=== PATIENT | female | born 1990 | race Caucasian/White ===

== ENCOUNTER 2020-03-19 16:23 | Outpatient (REF) | payer SELFPAY | END 2020-03-19 16:43 | LOC: LBN 16:23 | PROVIDERS: PCP Internal Medicine; Visit Provider Family Medicine | DX: R30.0 Dysuria (principal); R31.29 Other microscopic hematuria | CPT/HCPCS: 87077; 87086; 87186 ==

== ENCOUNTER 2020-03-21 09:51 | Emergency (ER) | payer SELFPAY ==
[2020-03-21] VITALS (9 sets, daily range): BP systolic 93–126; BP diastolic 52–64; PULSE 61–92; RESP 16–18; TEMP 37.1; O2SAT 94–100
--- NOTE | 2020-03-21 09:53 | ED.GENADUL_ITS ---
Discharge Plan Disposition Patient Disposition: HOME Condition: Improving Discharge Details Clinical Impression: Pyelonephritis Primary Care Provider: Rachel Juarez ED Provider: Lucy Medel Home Meds and New Rx's Prescriptions: Continued ciprofloxacin HCl 500 mg tablet 500 mg PO BID 7 Days Qty: 14 RF: 0 promethazine 25 mg tablet 25 mg PO TID PRN (Reason: nausea and vomiting) Qty: 20 RF: 0 acetaminophen [Tylenol] 325 MG tablet 650 mg PO Q4H PRN Qty: 30 RF: 3 Discharge Instructions Instructions: Urinary Tract Infection in Women (ED), Kidney Infection (ED) Additional Instructions: Drink plenty of fluids and get plenty of rest. Alternate tylenol and motrin as needed and directed for pain. Take your antibiotics until finished. Continue to take your promethazine as needed directed for nausea and vomiting. Follow-up with your primary care doctor in 1 week. Return to the emergency department with any worsening or new concerning symptoms. Discharge Data Discharge Physician: Lucy Medel Medical Decision Making 29-year-old female presents with urinary frequency, flank pain for 6 days and vomited 3 times this morning. She is currently on ciprofloxacin for a suspected diagnosis of pyelonephritis. Vitals within normal limits. She appears nontoxic. She has right CVA tenderness. Abdomen soft and nontender. Urinalysis obtained on arrival and consistent with bladder infection. Will refer for labs and imaging as her symptoms are not improving on 1 and half days of antibiotics. Suspect she may need just additional antibiotic medication before her symptoms improve. We will also place an IV and fluids, IV Tylenol, Toradol and CT abdomen and pelvis and reassess. Urine test negative. Labs reviewed and note a normal white blood cell count. Normal renal function. CT abdomen and pelvis no evidence of stone, hydronephrosis or obvious signs of pyelonephritis. Suspect no obvious signs of pyelonephritis may be due to 2 days of oral antibiotics as clinically she appears consistent has pyelonephritis. Patient reassessed and she feels much better and she feels good to go home. Advised to finish her antibiotics as recent urine culture sensitive to ciprofloxacin. Advised to take her Phenergan as needed. Advised to follow up with the primary care doctor for re-evaluation. Usual and customary return precautions given prior to discharge. Medical Records Medical records reviewed: Yes I reviewed the patient's medical records. Imaging Data Radiologic Study: Radiologist's impression: CT ABDOMEN PELVIS W CLINICAL HISTORY: b/l flank pain, worse on R, r/o kidney stone. TECHNIQUE: Imaging Protocol: Axial computed tomography images with coronal and sagittal reformatted images were created and reviewed CONTRAST MATERIAL: Intravenous: Omnipaque 350 100cc Oral: None COMPARISON: No exams were available for comparison FINDINGS: VISUALIZED LUNG BASES: No nodules nor pleural effusions evident. ABDOMEN: There is no ascites. LIVER: There is a solitary focal finding in the liver in the anterior aspect of the right lobe which measures 9 x 9 millimeters. Appearing slightly dense to be a simple cyst. Possibly hemangioma; less likely to be more ominous pathology in this age group. No other focal hepatic lesions evident. GALLBLADDER/BILIARY: No obvious gallbladder pathology. CBD is not dilated. PANCREAS: No evidence of pancreatic mass nor dilatation of the pancreatic duct. SPLEEN: Spleen is not enlarged. No obvious intrasplenic lesions. Splenic and portal veins are patent. ADRENALS: There are no significant adrenal masses. KIDNEYS: Both kidneys exhibit normal size. . No cyst or mass is evident. Both kidneys enhance uniformly. No evidence of renal carbuncle, given the history here. No perinephric stranding. No calculi seen in the kidneys. Both upper ureters are slightly prominent in size. Both ureters are normal size below the iliac vessels. No calculi nor other findings in the urinary bladder. No diverticuli in the urinary bladder. ABDOMINAL AORTA: Abdominal aorta is not enlarged and there is no [id number]-gdob-wegbfg adenopathy. ABDOMINAL WALL/GI: No evidence of significant anterior abdominal wall hernia. No bowel obstruction. PELVIS: GI: No evidence of appendicitis.No evidence of sigmoid diverticulitis. LYMPH NODES: There is no intrapelvic nor inguinal adenopathy. REPRODUCTIVE: Uterus is retroverted. There are cysts in both ovaries noted. Largest of these on the left size and measures 1.7 x 1.5 centimetres, most probably follicular. There no extraovarian adnexal masses. No free fluid in the pelvis. URINARY BLADDER: No calculi nor obvious masses evident OSSEOUS: No significant osseous lesions. IMPRESSION: 1. No calculi no other focal findings in the kidneys. No hydronephrosis. Both ureters are slightly prominent in size but do not exhibit radiopaque calculi therein. There also no calculi in the urinary bladder. 2. Kidneys enhance normally and uniformly with no asymmetric enhancement which is sometimes seen in pyelonephritis. Also no evidence of renal carbuncle. 3. Follicular cysts in the ovaries. 4. Incidentally noted is a solitary round 9 x 9 millimeter lesion in the liver which appears slightly too dense to be a simple cyst. Statistically this is probably a hemangioma in this age group. Recommend follow-up ultrasound. Lab Data Lab results reviewed: Yes I reviewed the patient's lab results. Labs: Laboratory Tests Range/Units 03/21/20 03/21/20 03/21/20 09:57 10:04 10:04 WBC (4.4-10.8) 10^3/uL 5.57 RBC (3.93-5.22) 10^6/uL 4.14 Hgb (11.2-15.7) g/dL 12.0 Hct (36.0-46.0) % 37.5 MCV (80-95) fL 90.6 MCH (27.0-33.0) pg 29.0 MCHC (32.0-36.0) % 32.0 RDW (11.7-14.6) % 11.9 Plt Count (130-400) 10^3/uL 219 MPV (8.0-11.0) fL 11.2 H Immature Gran % 0.2 Neutrophils % 66.3 Lymphocytes % 26.6 Monocytes % 5.4 Eosinophils % 1.1 Basophils % 0.4 Nucleated RBC % % 0 Absolute Neutrophils (1.2-6.7) 10^3/uL 3.70 Absolute Lymphocytes (1.2-3.4) 10^3/uL 1.48 Absolute Monocytes (0.1-0.8) 10^3/uL 0.30 Absolute Eosinophils (0.0-0.7) 10^3/uL 0.06 Absolute Basophils (0.0-0.2) 10^3/uL 0.02 Sodium (136-145) mmol/L 137 Potassium (3.5-5.1) mmol/L 3.7 Chloride (98-107) mmol/L 102 Carbon Dioxide (21.0-32.0) mmol/L 28.4 Anion Gap (3-11) mmol/L 6.6 BUN (7-18) mg/dL 12 Creatinine (0.55-1.02) mg/dL 0.90 Estimated GFR/1.73 m2 (mL/min/1.73m2) >= 60.00 Glucose (74-106) mg/dL 82 Calcium (8.5-10.1) mg/dL 8.9 Total Bilirubin (0.2-1.0) mg/dL 0.8 AST (15-37) U/L 13 L ALT (14-59) U/L 15 Alkaline Phosphatase (46-116) U/L 40 L Total Protein (6.4-8.2) g/dL 8.2 Albumin (3.4-5.0) g/dL 4.1 Lipase (73-393) U/L 50 Urine Color (Yellow) Yellow Urine Clarity (Clear) Clear Urine pH (5-8) 7.0 Ur Specific [place] (1.005-1.025) 1.025 Urine Protein (Negative) mg/dL Negative Urine Ketones (Negative) mg/dL Negative Urine Blood (Negative) Trace-intact H Urine Nitrite (Negative) Negative Urine Bilirubin (Negative) Negative Urine Urobilinogen (Up TO 0.2) EU/dL 0.2 Ur Leukocyte Esterase (Negative) Trace H Urine RBC (0-2) HPF 10-20 H Urine WBC (0-5) HPF >50 H Ur Epithelial Cells (Negative) HPF Moderate Urine Crystals (Negative) HPF Negative Urine Bacteria (Negative) HPF Moderate Urine Casts (Negative) LPF Negative Urine Mucus (Negative) Negative Urine Other (Negative) Few transitional Ur Culture Indicated? No/sq. contamination Urine Glucose (Negative) mg/dL Negative HPI General Mode of arrival: ambulatory . Date/Time Provider Initiated Documentation: 03/21/20 09:53 . Limitations to Documentation: no limitations . Information obtained by: patient . HPI Narrative: Patient is a 29-year-old female who presents to the ED with urinary frequency, bilateral flank pain, worse on the right side for the past 6 days and nausea and vomiting today. Patient states that her symptoms for started with urinary frequency and flank pain. She saw her primary care doctor 2 days ago and was diagnosed with likely pyelonephritis and started on ciprofloxacin and given an antiemetic. She states she took her Cipro medication this morning and immediately vomited it up. She states she was advised to come to the ER for further evaluation if unable to keep her medication down her symptoms are worsening. She admits to a temperature of 100.5 two days ago. Related Data Home Medications Medication Instructions Recorded Confirmed acetaminophen [Tylenol] 650 mg PO Q4H PRN #30 tab-cap 11/11/16 03/21/20 ciprofloxacin HCl 500 mg tablet 500 mg PO BID 7 Days #14 tab 03/19/20 03/21/20 promethazine 25 mg tablet 25 mg PO TID PRN #20 tab 03/19/20 03/21/20 Previous Rx's Medication Instructions Recorded ciprofloxacin HCl 500 mg tablet 500 mg PO BID 7 Days #14 tab 03/19/20 promethazine 25 mg tablet 25 mg PO TID PRN #20 tab 03/19/20 Allergies Allergy/AdvReac Type Severity Reaction Status Date / Time codeine AdvReac Intermediate mood Verified 03/21/20 10:00 changes/vomiting as an infant Review of Systems All systems reviewed & are unremarkable except as noted in HPI and below Constitutional Constitutional: Reports as per HPI, Denies chills and Denies fever(s) Eyes Eyes: Denies blurry vision ENT Ears, Nose, Mouth, and Throat: Denies dizziness, Denies sore throat and Denies throat swelling Cardiovascular Cardiovascular: Denies chest pain and Denies dyspnea Respiratory Respiratory: Denies cough and Denies dyspnea Gastrointestinal Gastrointestinal: Denies abdominal pain, Denies diarrhea and Denies vomiting Genitourinary Genitourinary: Denies hematuria, Denies dysuria, Reports flank pain, Reports urinary hesitancy and Reports other (urinary frequency) Musculoskeletal Musculoskeletal: Denies back pain and Denies numbness Integumentary/Breasts Skin/Breast: Denies lesions and Denies rash Neurologic Neurologic: Denies dizziness, Denies localized weakness and Denies numbness Allergic/Immunologic Allergic/Immunologic: Denies throat swelling [facility] Medical History (Updated 03/21/20 @ 12:47 by Lucy Medel DO) BV (bacterial vaginosis) History of ETOH abuse Low back pain H/o disc herniations Urinary tract infection Surgical History wisdom teeth extraction Family History (Updated 09/28/13 @ 15:13 by Angelique Laughlin) Other Diabetes Hyperlipidemia Osteoporosis Social History Smoking/Tobacco Use Status: Never Smoking risk assessment performed?: Yes Alcohol Intake: never Drug use: Never Do you feel safe at home: Yes Do you feel safe in your relationship?: Yes Exam Const General: cooperative, healthy appearing and no acute distress [facility] Head: normal to inspection Face and sinus: normal facial exam Eyes General: appearance normal, both eyes and all related structures EOM: EOM intact bilaterally Neck Neck: normal visual inspection and No submandibular swelling Lymphatic: no lymphadenopathy noted Chest Chest: normal inspection of the chest and no tenderness Resp Effort & Inspection: normal respiratory effort and able to speak in complete sentences Auscultation: clear to auscultation bilaterally Cardio Rate: regular rate Rhythm: regular rhythm GI Inspection: normal to inspection Palpation: soft, not firm, not rigid and nontender Auscultation: normal bowel sounds Back/Spine/Pelvis Back: CVA tenderness (R side) Thoracic/Lumbar Spine: thoracic and lumbar spine normal to inspection Pelvis: no pain with anterior-posterior compression Skin General skin exam: no rashes or lesions noted Neuro General: patient alert, patient awake and patient oriented x3 Cognition: normal cognition Speech: speech normal Motor: muscle tone normal throughout Sensory Exam: no sensory deficits noted Extrem General: normal to inspection, full ROM, capillary refill normal, no calf tenderness bilaterally and no edema Psych Appearance: grossly normal Mental Status: mental status grossly normal Speech and Movement: speech and movement normal Affect: normal affect
[2020-03-21 10:03] LABS: Bilirubin Negative (Negative); Blood Trace-intact (Negative); Clarity Clear (Clear); Glucose Negative (Negative); Ketones Negative (Negative); Leukocyte Esterase Trace (Negative); Nitrite Negative (Negative); Specific Gravity 1.025 (1.005-1.025); Urobilinogen 0.2 EU/dL (Up TO 0.2)
[2020-03-21 10:15] LABS: Bacteria Moderate HPF (Negative); Casts Negative LPF (Negative); Crystals Negative HPF (Negative); Epithelial Cells Moderate HPF (Negative); Mucus Negative (Negative); Other Cells Few Transitional (Negative); WBC >50 HPF (0-5)
[2020-03-21 10:26] LABS: C & S Indicated? No/Sq. Contamination
--- NOTE | 2020-03-21 10:30 | DI.CT_ITS ---
EXAM: CT ABDOMEN PELVIS W CLINICAL HISTORY: b/l flank pain, worse on R, r/o kidney stone. TECHNIQUE: Imaging Protocol: Axial computed tomography images with coronal and sagittal reformatted images were created and reviewed CONTRAST MATERIAL: Intravenous: Omnipaque 350 100cc Oral: None COMPARISON: No exams were available for comparison FINDINGS: VISUALIZED LUNG BASES: No nodules nor pleural effusions evident. ABDOMEN: There is no ascites. LIVER: There is a solitary focal finding in the liver in the anterior aspect of the right lobe which measures 9 x 9 millimeters. Appearing slightly dense to be a simple cyst. Possibly hemangioma; less likely to be more ominous pathology in this age group. No other focal hepatic lesions evident. GALLBLADDER/BILIARY: No obvious gallbladder pathology. CBD is not dilated. PANCREAS: No evidence of pancreatic mass nor dilatation of the pancreatic duct. SPLEEN: Spleen is not enlarged. No obvious intrasplenic lesions. Splenic and portal veins are paten t. ADRENALS: There are no significant adrenal masses. KIDNEYS: Both kidneys exhibit normal size. . No cyst or mass is evident. Both kidneys enhance unif ormly. No evidence of renal carbuncle, given the history here. No perinephric stranding. No calcul i seen in the kidneys. Both upper ureters are slightly prominent in size. Both ureters are normal s ize below the iliac vessels. No calculi nor other findings in the urinary bladder. No diverticuli i n the urinary bladder. ABDOMINAL AORTA: Abdominal aorta is not enlarged and there is no vvakxhvegirzaei-bsgj-mxdxrm adenopat hy. ABDOMINAL WALL/GI: No evidence of significant anterior abdominal wall hernia. No bowel obstruction. PELVIS: GI: No evidence of appendicitis.No evidence of sigmoid diverticulitis. LYMPH NODES: There is no intrapelvic nor inguinal adenopathy. REPRODUCTIVE: Uterus is retroverted. There are cysts in both ovaries noted. Largest of these on the l eft size and measures 1.7 x 1.5 centimetres, most probably follicular. There no extraovarian adnexal masses. No free fluid in the pelvis. URINARY BLADDER: No calculi nor obvious masses evident OSSEOUS: No significant osseous lesions. IMPRESSION: 1. No calculi no other focal findings in the kidneys. No hydronephrosis. Both ureters are slightly pr ominent in size but do not exhibit radiopaque calculi therein. There also no calculi in the urinary b ladder. 2. Kidneys enhance normally and uniformly with no asymmetric enhancement which is sometimes seen in p yelonephritis. Also no evidence of renal carbuncle. 3. Follicular cysts in the ovaries. 4. Incidentally noted is a solitary round 9 x 9 millimeter lesion in the liver which appears slightly too dense to be a simple cyst. Statistically this is probably a hemangioma in this age group. Recomm end follow-up ultrasound. RADIATION DOSE DELIVERED: 878.24mGy.cm Total DLP DATA REPOSITORY: All CT scans at this facility are submitted to the National Radiology Data Registry (NRDR) Dose Index Registry (DIR) with the [employer] ([employer]). RADIATION OPTIMIZATION: All CT scans at this facility use at least one of these dose optimization te chniques: automated exposure control; mA and/or kV adjustment per patient size (includes targeted exa ms where dose is matched to clinical indication); or iterative reconstruction.
[2020-03-21 10:33] LABS: Abs Immature Grans 0.01 10^3/uL (0.0-0.06); Absolute Basophil Count 0.02 10^3/uL (0.0-0.2); Absolute Eosinophil Count 0.06 10^3/uL (0.0-0.7); Absolute Lymphocyte Count 1.48 10^3/uL (1.2-3.4); Basophils % 0.4; Eosinophils % 1.1; HCT 37.5 % (36.0-46.0); Immature Grans % 0.2; Lymphocytes % 26.6; MCV 90.6 fL (80-95); MPV 11.2 fL (8.0-11.0); Monocytes % 5.4; Neutrophils % 66.3; Nucleated RBC 0 %; Platelet Count 219 10^3/uL (130-400); RBC 4.14 10^6/uL (3.93-5.22); RDW 11.9 % (11.7-14.6); RDW-SD 39.7 fL; WBC 5.57 10^3/uL (4.4-10.8)
[2020-03-21 10:46] LABS: ALT 15 U/L (14-59); AST 13 U/L (15-37); Albumin 4.1 g/dL (3.4-5.0); Alkaline Phosphatase 40 U/L (46-116); Anion Gap 6.6 mmol/L (3-11); BUN 12 mg/dL (7-18); Bilirubin, Total 0.8 mg/dL (0.2-1.0); CO2 28.4 mmol/L (21.0-32.0); Calcium 8.9 mg/dL (8.5-10.1); Chloride 102 mmol/L (98-107); Glucose 82 mg/dL (74-106); Lipase 50 U/L (73-393); Potassium 3.7 mmol/L (3.5-5.1); Sodium 137 mmol/L (136-145); Total Protein 8.2 g/dL (6.4-8.2)
[2020-03-21] MEDS: Ketorolac 30 MG/ML VIAL IVP (10:48)
[2020-03-21] MEDS: ACETAMINOPHEN 1,000 MG/100 ML BTL 400 MG IVPB (10:48)
[2020-03-21] MEDS: Omnipaque 350 MG/ML 100 ML BTL IJ (11:55)
[2020-03-21] MEDS: Normal Saline - Diluent 50 ML VIAL IV (11:56)
== END 2020-03-21 12:58 | disposition home or self-care (01) ==
PROVIDERS: Emergency Provider Physician Assistant; PCP Internal Medicine
DX: N10 Acute pyelonephritis (principal); Z87.440 Personal history of urinary (tract) infections
CPT/HCPCS: 36415; 80053; 81025; 83690; 96365; 96367; 96375; 99285; 74177; 81003; 81015; 85025; 87086; J0131; J1885; J3490

== ENCOUNTER → 2020-03-29 12:07 | Outpatient (REF) | payer SELFPAY | LOC: LBO 12:07 | PROVIDERS: PCP Internal Medicine; Visit Provider Nurse Practitioner Family | DX: R10.9 Unspecified abdominal pain (principal); R82.998 Other abnormal findings in urine | CPT/HCPCS: 87086 ==

== ENCOUNTER 2021-08-25 20:01 | Emergency (ER) | payer MEDICAID, SELFPAY ==
[2021-08-25 20:10] VITALS: BP 117/84; PULSE 66; RESP 21; TEMP 36.3; O2SAT 98
--- NOTE | 2021-08-25 20:37 | W.ED.GENAD ---
Discharge Plan Disposition Patient Disposition: HOME Condition: Good Discharge Details Clinical Impression: Lumbago, Radiculopathy Primary Care Provider: Rachel Juarez ED Provider: Scar Chakraborty Home Meds and New Rx's Prescriptions: New prednisone 50 mg tablet 50 mg PO DAILY Qty: 5 0RF lidocaine [Lidoderm] 5 % adhesive patch,medicated 1 patch Topical Q24H Qty: 15 0RF cyclobenzaprine 10 mg tablet 10 mg PO TID Qty: 14 0RF Continued promethazine 25 mg tablet 25 mg PO TID PRN (Reason: nausea and vomiting) Qty: 20 0RF etonogestrel-ethinyl estradiol [NuvaRing] 0.12-0.015 mg/24 hr ring 1 vag ring vaginal Q4W Rx Instructions: leave in place for 3 weeks of a 4-week cycle acetaminophen [Tylenol] 325 MG tablet 650 mg PO Q4H PRN Qty: 30 Label Comments: stopped taking it, multivitamin Tablet 1 tab PO DAILY ibuprofen 200 mg Tablet 200 mg PO Q6H PRN Discharge Instructions Instructions: Low Back Strain (ED) Additional Instructions: At this time your signs and symptoms are clinically consistent with a back sprain. This can cause significant pain and take a fair bit of time to heal. I expect 1 to 2 months for potential resolution. In the meantime do not lift anything greater than 5 pounds for the next 2 weeks. Avoid any significant vigorous physical activity. Perform easy gentle regular activities at home without any significant bending or lifting. Please take the steroids as directed. You have been given a prescription for Lidoderm patch. If your insurance does not cover this you can get [id number] Lidoderm patches at 4% which are almost just as effective. Please take the Flexeril as directed but do not take it when driving or operating any vehicles or heavy machinery, swimming, taking long baths, or operating firearms. Please use a heating pad as often as possible on your back. Perform daily gentle stretches on your back. Please continue to take the Tylenol and Motrin. You can take 1000 mg of Tylenol every 6 hours and 600 mg of ibuprofen every 6 hours. If you notice any worsening of your symptoms, or any new symptoms such as vomiting, diarrhea, fever, chills, shortness of breath, chest pain, numbness or tingling in your groin or legs, weakness in your legs, loss of control for your bowels or bladder, or fainting , please return immediately to the emergency department for reevaluation. Please follow up with your primary care provider as soon as possible for reassessment and reevaluation. As always, it was a pleasure participating in your medical care today. 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 Patient states that her herniated disks are usually well managed with Tylenol and Motrin. She has had injections in the past, but has not required any recently. She has chronic tingling going down her left leg on the lateral and anterior aspect all the way down to her foot. It has been worsening for the last 5 months, which she has noticed increased tingling and increased achiness in her left buttock extending down her left leg. Worse with bending and movement. However over the last 24 hours it is gotten significantly worse. She had a recent long trip down to [facility] where she was sitting in a car for over 6 hours. She states that after this her symptoms were notably worse. She did take her Tylenol and Motrin but this did not really improve much. Patient denies any saddle anesthesia, numbness or tingling in the groin, change in sensation when wiping. Patient denies any change in sensation during sexual intercourse, bowel or bladder incontinence, leakage, or retention. Patient denies any weakness in the lower extremities, atypical falls or imbalance. She denies any IV or illicit drug use. She denies any fever or chills. She denies any urinary complaints or vaginal discharge. Physical exam demonstrates normal neurologic exam. Slight subjective decrease in sensation over the lateral and anterior thigh, as well as the calf and foot. No saddle anesthesia. No bowel or bladder incontinence. No rectal tone decreased. Patient has Reflexes, excellent vascular exam. She has no concerning red flags of IV or illicit drug use or recent trauma. Symptoms at this time appear consistent with mild lumbar radiculopathy. No clinical evidence of cauda equina syndrome, or signs or symptoms at this time suggest spinal epidural abscess, or epidural hematoma. At this time I do suspect this patient would do well with steroids, NSAIDs, muscle relaxants, and Lidoderm patch. No indication for emergent imaging at this time. We did discuss x-rays and CT scan, but also have that the patient will likely need on a nonemergent basis for more definitive MRI on an outpatient basis. Patient has declined CT and x-ray imaging at this time. Will recommend follow-up with her primary care provider for reassessment, potential outpatient MRI, and potential referral to the [facility] spine center again if indicated if she has no improvement. Discussed red flags which return. I have extensively reviewed the treatment plan and discharge instructions with the patient. I have addressed all patient concerns at this time. The patient was made aware of what symptoms to monitor for that would warrant a return to the emergency department. Discussed the plan with the patient, they demonstrate verbal understanding and agreement with our assessment and plan at this time. The documentation in this chart was dictated using [employer] dictation software. Please excuse any dictation errors. HPI General Date/Time Provider Initiated Documentation: 08/25/21 20:06. 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 Patient states that her herniated disks are usually well managed with Tylenol and Motrin. She has had injections in the past, but has not required any recently. She has chronic tingling going down her left leg on the lateral and anterior aspect all the way down to her foot. It has been worsening for the last 5 months, which she has noticed increased tingling and increased achiness in her left buttock extending down her left leg. Worse with bending and movement. However over the last 24 hours it is gotten significantly worse. She had a recent long trip down to [facility] where she was sitting in a car for over 6 hours. She states that after this her symptoms were notably worse. She did take her Tylenol and Motrin but this did not really improve much. Patient denies any saddle anesthesia, numbness or tingling in the groin, change in sensation when wiping. Patient denies any change in sensation during sexual intercourse, bowel or bladder incontinence, leakage, or retention. Patient denies any weakness in the lower extremities, atypical falls or imbalance. She denies any IV or illicit drug use. She denies any fever or chills. She denies any urinary complaints or vaginal discharge. Related Data Home Medications Medication Instructions Recorded Confirmed acetaminophen 325 mg tablet 650 mg PO Q4H PRN #30 tab-caps 11/11/16 08/25/21 (Tylenol) promethazine 25 mg tablet 25 mg PO TID PRN nausea and 03/19/20 03/29/20 vomiting #20 tabs etonogestrel 0.12 mg-ethinyl 1 vag ring vaginal Q4W 03/29/20 03/29/20 estradiol 0.015 mg/24 hr vaginal ring (NuvaRing) cyclobenzaprine 10 mg tablet 10 mg PO TID #14 tabs 08/25/21 ibuprofen 200 mg tablet 200 mg PO Q6H PRN 08/25/21 08/25/21 lidocaine 5 % topical patch 1 patch topical Q24H #15 ea 08/25/21 (Lidoderm) multivitamin 1 tab PO DAILY 08/25/21 08/25/21 prednisone 50 mg tablet 50 mg PO DAILY #5 tabs 08/25/21 Previous Rx's Medication Instructions Recorded promethazine 25 mg tablet 25 mg PO TID PRN nausea and 03/19/20 vomiting #20 tabs cyclobenzaprine 10 mg tablet 10 mg PO TID #14 tabs 08/25/21 lidocaine 5 % topical patch 1 patch topical Q24H #15 ea 08/25/21 (Lidoderm) prednisone 50 mg tablet 50 mg PO DAILY #5 tabs 08/25/21 Allergies Allergy/AdvReac Type Severity Reaction Status Date / Time codeine AdvReac Intermediate mood Verified 08/25/21 20:31 changes/vomiting as an General Stated Complaint: Nk/Back Pain LAURA: 4 Review of Systems All systems reviewed & are unremarkable except as noted in HPI and below PFSH All Active Problems Lumbago (Acute) Radiculopathy (Acute) Allergic reaction (Acute) Medical History BV (bacterial vaginosis) History of ETOH abuse Low back pain H/o disc herniations Urinary tract infection Surgical History wisdom teeth extraction Family History Other Diabetes Hyperlipidemia Osteoporosis Social History Smoking/Tobacco Use Status: Never Smoking risk assessment performed?: Yes Alcohol Intake: never Drug use: Never Substance use type: does not use Do you feel safe at home: Yes Do you feel safe in your relationship?: Yes Exam Narrative Exam Narrative: 1.Const: Well-nourished, Well-developed, appearing stated age 2.Eyes: PERRL, no conjunctival injection, and symmetrical lids. 3.ENT: Atraumatic external nose and ears. Moist MM. Neck: Symmetric, trachea midline, No thyromegaly. 4.CVS: +S1/S2, No murmurs or gallops. Peripheral pulses 2+ and equal in all extremities. Brisk capillary refill in all extremities. 5.RESP: Unlabored respiratory effort. Clear to auscultation bilaterally. No wheezes rales or rhonchi 6.GI: Soft, Nontender/Nondistended, No hepatosplenomegaly. No guarding or rebound. 7.MSK: Normocephalic/Atraumatic, Extremities w/o deformity or ttp No cyanosis or clubbing, Normal movement of all extremities No midline tenderness to palpation over the CTLS spine. Normal ROM in flexion, extension, side bend, and rotation. Notable left-sided paraspinal spasm over the lumbar vertebra. Patient has +5 out of 5 strength in the lower extremities in dorsiflexion and plantarflexion, knee flexion and extension, hip flexion and extension. Normal strength for dorsiflexion and plantar flexion of the great toe bilaterally. There is +2 over 2 dorsalis pedis pulses bilaterally. There is normal sensation to the skin with light touch at the foot, knee, and hip, however the patient does states that it feels to be a slight diminishment of sensation subjectively over the lateral aspect of the thigh, anterior aspect of the thigh, calf, fishman, and foot. Otherwise good objective sensation over the deep sural nerve area bilaterally. Rectal exam demonstrates good rectal tone and good perirectal sensation. Reflexes are +3 over 4 in the patellar reflex bilaterally. 8.Skin: Warm, Dry. No rashes or lesions. 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 Sensation grossly intact, no focal neurologic deficits. Please see musculoskeletal 10.Psych: (AAO) x3. Appropriate mood and affect Course Vital Signs Vital signs: Vital Signs Temperature 36.3 C L 08/25/21 20:10 Pulse 66 08/25/21 20:10 Respiratory Rate 08/25/21 20:10 Blood Pressure 117/84 08/25/21 20:10 Pulse Oximetry 98 08/25/21 20:10 Temperature 36.3 C L 08/25/21 20:10 Temperature Source Skin 08/25/21 20:10 Pulse 66 08/25/21 20:10 Respiratory Rate 08/25/21 20:10 Respiratory Effort Non-Labored 08/25/21 20:18 Blood Pressure 117/84 08/25/21 20:10 Blood Pressure Position Sitting 08/25/21 20:10 Pulse Oximetry 98 08/25/21 20:10 Oxygen Delivery Method Room Air 08/25/21 20:10 Oxygen Flow Rate 0 08/25/21 20:10 Pain Level 10 08/25/21 20:12
[2021-08-25] MEDS: Acetaminophen 500 MG TAB 1000 MG PO (20:42)
[2021-08-25] MEDS: predniSONE 20 MG TAB 60 MG PO (20:42)
[2021-08-25] MEDS: Lidocaine 5% Patch 1 PATCH TP (20:43)
[2021-08-25] MEDS: Cyclobenzaprine 10 MG TAB, 3 TABS/BTL PO (20:43)
[2021-08-25] MEDS: Ketorolac 30 MG/ML VIAL IM (20:43)
[2021-08-25 20:56] VITALS: BP 117/84; PULSE 66; RESP 21; TEMP 36.3; O2SAT 98
== END 2021-08-25 20:54 | disposition home or self-care (01) ==
PROVIDERS: Emergency Provider Student in an Organized Health Care Education/Training Program; PCP Internal Medicine
DX: M54.16 Radiculopathy, lumbar region (principal)
CPT/HCPCS: 96372; 99284; 99283; J1885; J7512

== ENCOUNTER → 2021-10-17 01:27 | Outpatient (CLI) | payer MEDICAID, SELFPAY ==
--- NOTE | 2021-10-17 08:15 | DI.MRI_ITS ---
Exam(s) MR LUMBAR SPINE WO EXAM: MR LUMBAR SPINE WO CLINICAL HISTORY: pain,radiculopathy,m54.10. TECHNIQUE: Multiplanar multisequence MRI of the Lumbar spine was performed. COMPARISON: CT CT ABDOMEN PELVIS W from 03/21/2020 There are no plain films of the lumbar spine available time this MRI interpretation. FINDINGS: Five lumbar vertebrae are presumed. Conus medullaris is at normal level. There is no evidence of conus mass nor subjacent clumping of in trathecal nerve roots to suggest arachnoiditis. The distal thecal sac appears unremarkable.There is no evidence of Tarlov intrasacral cysts nor other significant findings within the sacral canal Bones:There are no fractures nor ominous osseous lesions in the lumbar vertebral bodies and visualize d sacrum. With respect to the individual levels... T11-T12: There is a small right paracentral disc protrusion. This slightly indents the thecal sac. Is no prominent canal stenosis. No foraminal stenosis at this level. T12-L1: Unremarkable L1-2: Normal disc height and signal. No disc herniation nor central canal stenosis.No foraminal steno sis L2-3: Normal disc height. No disc herniation nor central canal stenosis.No foraminal stenosis.No face t arthropathy. L3-4: Normal disc height. No disc herniation or central canal stenosis.No foraminal stenosis.No face t arthropathy. L4-5: Normal disc height. However, there is a disc herniation central and left side, this extending posteriorly 7 millimeters, indenting thecal sac and occupying the left lateral recess. Disc protrusi on is approximately 2 cm wide. It does not appreciably obstruct the exiting left neural foramen with only mild extension into the floor of the exiting left neural foramen without significant left-sided foraminal stenosis. Disc protrusion does not extend into the exiting right neural foramen which chrissie ears unremarkable. Facet joints appear unremarkable at this level. L5-S1: Decreased disc height. There are Modic type 2 sub endplate fatty marrow changes at this level evident. However, there is no disc herniation at this level nor central canal stenosis and there is no evidence of significant foraminal stenosis at this level. Also no significant facet arthropathy at this level. Soft tissues: paraspinal soft tissues appear unremarkable. IMPRESSION: 1. There is a large central-left disc protrusion at L4-5 level as described above. This significantl y impresses the thecal sac and occupies the left lateral recess. Does not exhibit appreciable extent seen into the exiting left neural foramen. There is no disc height loss at this level. 2. There is chronic moderate disc height loss at L5-S1 level. However, there is no disc herniation o r central canal stenosis at this level nor significant foraminal stenosis. 3. There is no evidence of facet joint arthropathy in the lumbosacral spinal column. DATA REPOSITORY:
== END ==
PROVIDERS: PCP Internal Medicine; Visit Provider Internal Medicine
DX: M51.16 Intervertebral disc disorders with radiculopathy, lumbar region (principal); M53.87 Other specified dorsopathies, lumbosacral region
CPT/HCPCS: 72148

== ENCOUNTER 2022-06-05 14:09 | Outpatient (REF) | payer MEDICAID, SELFPAY ==
[2022-06-05 15:57] LABS: COVID-19 PCR Negative (Negative); Influenza A PCR Negative (Negative); Influenza B PCR Negative (Negative); RSV PCR Negative (Negative)
[2022-06-05 16:07] LABS: Source Nasopharynx
== END 2022-06-05 14:10 | disposition home or self-care (01) ==
LOC: LBN 14:09
PROVIDERS: PCP Internal Medicine; Referring Provider Nurse Practitioner; Visit Provider Nurse Practitioner
DX: R05.8 Other specified cough (principal); R53.83 Other fatigue; R09.81 Nasal congestion; Z20.822 Contact with and (suspected) exposure to COVID-19
CPT/HCPCS: 87637

== ENCOUNTER 2022-07-24 13:47 | Outpatient (CLI) | payer MEDICAID, SELFPAY ==
[2022-07-24 11:23] LABS: Abs Immature Grans 0.01 10^3/uL (0.0-0.06); Absolute Basophil Count 0.02 10^3/uL (0.0-0.2); Absolute Eosinophil Count 0.08 10^3/uL (0.0-0.7); Absolute Lymphocyte Count 1.79 10^3/uL (1.2-3.4); Absolute Monocyte Count 0.38 10^3/uL (0.1-0.8); Absolute Neutrophil Count 3.12 10^3/uL (1.2-6.7); Basophils % 0.4; Eosinophils % 1.5; HCT 39.2 % (36.0-46.0); HGB 12.8 g/dL (11.2-15.7); Immature Grans % 0.2; Lymphocytes % 33.1; MCH 28.3 pg (27.0-33.0); MCHC 32.7 % (32.0-36.0); MCV 87 fL (80-95); MPV 10.6 fL (8.0-11.0); Neutrophils % 57.8; Platelet Count 227 10^3/uL (130-400); RBC 4.53 10^6/uL (3.93-5.22); RDW 12.4 % (11.7-14.6); RDW-SD 39.5 fL
[2022-07-24 12:07] LABS: ALT 29 U/L (14-59); AST 18 U/L (15-37); Albumin 4.5 g/dL (3.4-5.0); Alkaline Phosphatase 57 U/L (46-116); Anion Gap 7.9 mmol/L (3-11); BUN 10 mg/dL (7-18); Bilirubin, Total 1.5 mg/dL (0.2-1.0); CO2 29.1 mmol/L (21.0-32.0); CREATININE 0.9 mg/dL (0.55-1.02); Calcium 9.1 mg/dL (8.5-10.1); Calculated LDL 47 mg/dL (<100); Chloride 101 mmol/L (98-107); Cholesterol 105 mg/dL (<200); Estimated GFR 87.65 (mL/min/1.73m2); Glucose 86 mg/dL (74-106); HDL Cholesterol 46 mg/dL (40-60); Potassium 3.7 mmol/L (3.5-5.1); Sodium 138 mmol/L (136-145); Total Protein 8.6 g/dL (6.4-8.2); Triglyceride 62 mg/dL (<150)
[2022-07-25 09:47] LABS: Hepatitis C Ab w Rflx HCV PCR Negative (Negative)
[2022-07-25 10:09] LABS: HIV-1/2 Ag & Ab Screen Negative (Negative)
== END 2022-07-24 13:48 | disposition home or self-care (01) ==
LOC: LBO 13:49
PROVIDERS: PCP Nurse Practitioner; Visit Provider Nurse Practitioner
DX: E66.3 Overweight (principal); Z11.4 Encounter for screening for human immunodeficiency virus [HIV]; Z11.59 Encounter for screening for other viral diseases; Z00.00 Encounter for general adult medical examination without abnormal findings
CPT/HCPCS: 36415; 80053; 80061; 86803; 87389; 85025

== ENCOUNTER 2022-10-16 03:18 | Outpatient (CLI) | payer MEDICAID, SELFPAY ==
[2022-10-16 18:20] LABS: Albumin 4.6 g/dL (3.4-5.0); Bilirubin, Direct 0.2 mg/dL (0.0-0.2); Bilirubin, Total 1.1 mg/dL (0.2-1.0); Total Protein 8.6 g/dL (6.4-8.2)
== END 2022-10-16 03:19 | disposition home or self-care (01) ==
LOC: LBO 03:18
PROVIDERS: PCP Nurse Practitioner; Visit Provider Nurse Practitioner
DX: R77.9 Abnormality of plasma protein, unspecified
CPT/HCPCS: 36415; 82040; 82247; 82248; 84155

== ENCOUNTER 2022-10-31 01:50 | Outpatient (CLI) | payer MEDICAID, SELFPAY ==
[2022-10-31 09:16] LABS: Total Protein 7.9 g/dL (6.4-8.2)
[2022-11-03 13:29] LABS: Albumin 58.2 % (55.8-66.1); Albumin g/dL 4.5 g/dL (3.6-5.2); Total Protein 7.8 g/dL (6.3-8.2)
== END 2022-10-31 01:51 | disposition home or self-care (01) ==
LOC: LBO 01:50
PROVIDERS: Absent Provider Nurse Practitioner; PCP Nurse Practitioner; Visit Provider Nurse Practitioner
DX: R77.8 Other specified abnormalities of plasma proteins (principal)
CPT/HCPCS: 36415; 84155; 84165

== ENCOUNTER 2024-09-23 06:14 | Day surgery (SDC) | payer BC, SELFPAY ==
[2024-09-23] VITALS (32 sets, daily range): BP systolic 87–121; BP diastolic 52–85; PULSE 58–106; RESP 11–19; TEMP 36.2–36.7; O2SAT 95–100; BMI 30.4
--- NOTE | 2024-09-23 06:36 | W.ANESPRE ---
General Info Date of Service Date Performed: 09/23/24 Height: 5 ft 4.5 in Weight: 81.7 kg Body Mass Index (BMI): 30.4 Surgical Procedure: Operation Date: 09/23/24 07:40 Proposed Procedure Side Surgeon p Cholecystectomy Laparoscopic Erika BROUSSARD MD Meds Allergies and Home Medications Allergies Allergy/AdvReac Type Severity Reaction Status Date / Time codeine AdvReac Intermediate mood Verified 09/23/24 06:25 changes/vomiting as an Home Medication ?Medication ?Instructions ?Recorded ox bile complex PO DAILY 08/01/24 turmeric 100 mg-phoenix 150 1 cap PO DAILY 08/01/24 mg-olive 50 mg-oreg 150 mg-capryl capsule multivitamin 09/23/24 Current Visit Medications: Current Medications Generic Name Dose Route Start Last Admin Trade Name Freq PRN Reason Stop Dose Admin Ringer's Solution 1,000 mls @ 80 mls/hr 09/23/24 06:00 IV 09/23/24 23:59 INFUSION HAIR Cefazolin Sodium/Dextrose 2 gm in 50 mls @ 100 mls/hr 09/23/24 06:00 Ancef Duplex IVPB 09/23/24 23:59 PREOP HAIR IV Miscellaneous Supplies 1 each 09/23/24 06:00 Iv Access IV 09/23/24 23:59 DIRECTED HAIR Sodium Chloride 0 ml 09/23/24 06:00 Normal Saline Flush 10 Ml Syr IV 09/23/24 23:59 PRN PRN Sodium Chloride 0 ml 09/23/24 06:00 Normal Saline 10 Ml Vial IJ 09/23/24 23:59 DIRECTED PRN Sterile Water 0 ml 09/23/24 06:00 Water,Injection,Sterile 10 Ml Vial IJ 09/23/24 23:59 DIRECTED PRN PFSH Active Problems Active Problems: Problem Status Onset Code Right upper quadrant pain Acute ~07/2024 R10.11 GERD (gastroesophageal reflux disease) Chronic ~04/2024 K21.9 Fatty liver Acute ~04/2024 K76.0 Muscle strain of gluteal region Acute S76.019A COVID Acute ~01/16/22 U07.1 Radiculopathy, lumbar region Acute ~10/2021 M54.16 Allergic reaction Acute T78.40XA Medical History Medical History Elevated total protein History of ETOH abuse BV (bacterial vaginosis) Low back pain H/o disc herniations Urinary tract infection Surgical History Surgical History wisdom teeth extraction Tobacco Smoking/Tobacco Use Status: Former Tobacco Use Passive smoking exposure: No Alcohol Alcohol Intake: former Substance Use Substance use: Never Substance use type: does not use Vital Signs and Lab Results Vital Signs Most Recent Vital Signs in EMR: Most Recent Vital Signs Temp Pulse Resp BP Pulse Ox 36.4 C L 88 16 121/85 97 09/23/24 06:28 09/23/24 06:28 09/23/24 06:28 09/23/24 06:28 09/23/24 06:28 Anesthesia Assessment and Plan Anesthesia History Personal History: No History of Anesthesia Complications Family History: No Family History of Anesthesia Complications Exercise Tolerance Exercise Tolerance: Metabolic Equivalents>4 Pertinent Negatives Pertinent Negatives: No Major Cardiovascular Symptoms or Complaints, No Major Pulmonary Symptoms or Complaints and No History of CVA/TIA Cardiac & Pulmonary Exam Cardiac Exam: Normal S1/S2 Heart Sounds Pulmonary Exam: Clear Bilateral Breath Sounds and No cough or Cold Implantable Cardiac Device Does patient have a Pacemaker or an ICD?: No Airway Exam Known Difficult Airway: No Mallampati Class: 1 Mouth Opening: Normal (> 3cm) Thyromental Distance: Greater than 3 cm Neck Range of Motion: Full ROM Neck Circumference: Normal Teeth Condition: Normal Dentition ASA Classification ASA Score: ASA 2 Emergency Case?: No NPO Status NPO Status: NPO Clears >2 hours, Solids >8 hours Status Status: Negative HCG Anesthesia Plan Resuscitation Status: Full Code Anesthesia Technique: General Anesthesia Airway Planned: Endotracheal Tube Monitors Used: Standard Monitors and SedLine
[2024-09-23] MEDS: Lactated Ringers 1,000 ML 80 ML IV (07:07)
[2024-09-23] MEDS: ceFAZolin 2 GM/50 ML BAG IVPB (07:59)
--- NOTE | 2024-09-23 08:14 | ANES.NERVE_ITS ---
Nerve Block Single Injection Procedure Date and Time Date Performed: 09/23/24 Procedure Start: 07:59 Location Where Procedure Performed Procedure Location: Operating Room Procedure Stop: 08:12 Reason Performed: Postoperative Analgesia Requesting Provider: Erika Ang [facility] Timeout Performed Timeout Performed: Yes Monitoring Used ECG, Blood Pressure, SpO2, ETCO2 and See EMR for corresponding vital signs Sterility Sterility: Hand Hygiene, Surgical Cap, Surgical Mask, Sterile Gloves, Eye Protection and Chlorhexidine Sedation Given During Procedure Sedation Given (Indicate Dose Given): Other: Medication/Route/Dose:: Performed under GA Patient Mental Status Patient Mental Status: Performed under general anesthesia Nerve Block 1st Nerve Block: Laterality: Bilateral Block Type: TAP Bilateral Ultrasound Image Saved?: Yes Needle / Catheter Used: 120mm SonoPlex II Local Anesthetic Bolus (Indicate Dose Given): Injected in 3-5ml increments after negative blood aspiration, Half of Total block solution given into each side, Bupivacaine 0.25% Dose:: 30 ml and Exparel Dose:: 10 ml Additives (Indicate Dose Given): None Ultrasound: Sterile probe cover and gel used Nerve Stimulator: Not Used Paresthesia: None Procedure Tolerated: No Complications and Patient tolerated well Procedure Outcome: Successful Performed By: Amanuel Canales Supervised By: Bryan Gomez
[2024-09-23] MEDS: Bupivacaine 0.25% Pres-Free 30 ML VIAL (08:58)
--- NOTE | 2024-09-23 09:18 | W.PM.OP ---
Operative Note Operative Note PRE-OP DIAGNOSIS: Biliary dyskinesia POST-OP DIAGNOSIS: same PROCEDURE: Laparoscopic cholecystectomy SURGEON: Erika Ang [facility] [employer]FA[employer]ING SUPERVISOR 2ND SHIFT: Meg Berumen ANESTHESIA TYPE: Local By Surgeon, General LMA/ETT and Primary Nerve Block Refer to Anesthesia Record PATHOLOGY: other (Gallbladder) COMPLICATIONS: None Patient was transported to: PACU Patient's condition: stable Findings: Normal appearance of gallbladder Procedure Description: After obtaining informed consent, patient was brought back to the operating room. She was placed supine on the operating table. She was placed under general anesthesia with endotracheal intubation. Abdominal wall nerve block was done with ultrasound guidance by anesthesia using Exparel. Her abdomen was then prepped and draped in a sterile manner. Preoperative antibiotics were administered. I began by making a 3 cm incision just below the umbilicus. I proceeded to place a Ha trocar using standard technique. We insufflated the abdomen. I had the patient positioned in reverse Trendelenburg with the right side up. I had my store administrative assistant grasped the fundus of the gallbladder and retract cephalad. I took down a single small adhesion to the infundibulum. I then open the peritoneum all over the infundibulum both medially and laterally. I dissected with the [place] forcep around the cystic duct and the cystic artery. The anatomy was well-defined. I used a hook cautery to take down some flimsy tissue. Is able to obtain my critical view of safety. Both structures were clearly arising from the gallbladder. I placed 2 clips proximal and 1 distal on the cystic duct. I placed 2 close proximal and 1 distal on the cystic artery. I used a 5 mm clip handy man. I used the endoscopic scissors to transect the cystic duct. A bile-stained lumen was noted. I used the scissors to transect the cystic artery. I then the gallbladder from the liver using hook cautery. This was done with relative ease. I placed the gallbladder in a Endo Catch bag and removed through the umbilical port. I reevaluated the liver bed. There was no bleeding. There was no leakage of bile. The clips appeared to be in place. I removed the 5 mm ports. No bleeding was noted. I allowed insufflation to escape and removed the umbilical port. I closed the fascia at the umbilicus with a [id number] 0 Vicryl suture. I closed the skin with 4-0 Monocryl at all 4 sites. Dermabond was placed. Patient tolerated well. She was extubated without complication. She went to recovery in stable condition. Disposition: Patient will be discharged home later today. She will be seen back in the office in 2 to 4 weeks for follow-up. Date of Procedure: 09/23/24
[2024-09-23] MEDS: fentaNYL 100 MCG/2 ML VIAL IVP ×2 (09:41→09:58)
--- NOTE | 2024-09-23 10:13 | W.ANESPOSTOP ---
Postoperative Evaluation Date, Time and Location Date Performed: 09/23/24 Time Performed: 10:13 Patient Location: PACU Vital Signs Most Recent Imported Vital Signs: Most Recent Vital Signs Temp Pulse Resp BP Pulse Ox 36.4 C L 77 16 98/52 L 98 09/23/24 09:26 09/23/24 10:10 09/23/24 10:10 09/23/24 10:06 09/23/24 10:10 Pain Score Most Recent Pain Score: Most Recent Pain Score Pain Level 8 09/23/24 09:31 Assessment Mental Status: Awake (Alert & Oriented to Patient Baseline) Airway and Respiratory Function: Patent airway with normal (patient baseline) respiratory exam Cardiovascular Function: Hemodynamically Stable Hydration Status: Adequately Hydrated Nausea & Vomiting: No Nausea or Vomiting Pain: Pain is tolerable per patient Peripheral Nerve Block: Regional nerve block not resolved at time of post operative discharge Teaching Patient Teaching: Discussed Safe Use of Pain Medication Given Recent Anesthesia
== END 2024-09-23 11:47 | disposition home or self-care (01) ==
PROVIDERS: PCP Nurse Practitioner; Visit Provider Surgery
PROC: 0FT44ZZ Resection of Gallbladder, Percutaneous Endoscopic Approach (ICD-10-PCS; CPT 47562; principal; 2024-09-23 07:30)
DX: K82.8 Other specified diseases of gallbladder (principal)
CPT/HCPCS: 47562; 64488; 88304; J0665; J0666; J0690; J1100; J1885; J2003; J2250; J2405; J2704; J3010